=== PATIENT | male | born 1975 | race Caucasian/White ===

== ENCOUNTER 2021-04-12 17:43 | Emergency (ER) | payer OTHER, SELFPAY ==
[2021-04-12 18:14] LABS: COVID-19 Test Positive (Negative)
[2021-04-12 20:24] VITALS: BP 135/95; PULSE 139; RESP 20; TEMP 38; O2SAT 98
[2021-04-14 09:08] LABS: Glucose, Whole Blood 124 mg/dL (60-115)
== END 2021-04-12 22:27 | disposition left against medical advice (07) ==
PROVIDERS: Emergency Provider Emergency Medicine
DX: E86.0 Dehydration (principal); Z20.822 Contact with and (suspected) exposure to COVID-19
CPT/HCPCS: 36415; 82947; 87635; 99283